=== PATIENT | female | born 1995 | race Caucasian/White ===

== ENCOUNTER 2017-05-20 19:27 | Inpatient (IN) | payer OTHER ==
[~2017-05-20] VITALS: Ht 165.1 cm; Wt 86.3 kg
[2017-05-20 19:25] VITALS: BP 124/81; PULSE 97; RESP 18; TEMP 97.3; O2SAT 99
[2017-05-20] MEDS ORDERED: diphenhydrAMINE HCL 50 MG/ML VIAL - HS PRN IM (20:30)
[2017-05-20] MEDS ORDERED: ACETAMINOPHEN 325 MG TAB PO PRN (20:30)
[2017-05-20] MEDS ORDERED: hydrOXYzine HCL 50 MG TAB PO PRN (20:30)
[2017-05-20] MEDS ORDERED: ALUMINUM/MAGNESIUM/SIMETH 30 ML CUP PO PRN (20:30)
[2017-05-20] MEDS ORDERED: MAGNESIUM HYDROXIDE SUSP 30 ML CUP PO PRN (20:30)
[2017-05-20] MEDS: REMOVE OLD NICOTINE PATCH T-DERMAL SCH (21:00)
[2017-05-21 06:25] VITALS: BP 106/60; PULSE 90; RESP 18; TEMP 98; O2SAT 98
[2017-05-21 08:33] LABS: HDL CHOLESTEROL 57.6 MG/DL (40.0-60.0); LDL CHOLESTEROL 112 MG/DL (0-99)
[2017-05-21 08:47] LABS: ANION GAP 11 MEQ/L (5-15); BICARBONATE 22.3 MEQ/L (21.0-32.0); BLOOD UREA NITROGEN 11 MG/DL (7-18); CHLORIDE 106 MEQ/L (98-107); GLOMERULAR FILTRATION RATE 92 ML/MIN (>89); SODIUM (NA) 139 MEQ/L (136-145)
[2017-05-21] MEDS: NICOTINE 21 MG/24 HR PATCH T-DERMAL SCH (09:00)
[2017-05-21] MEDS: LURASIDONE 40 MG TAB PO SCH (17:04)
[2017-05-21 17:14] LABS: HEMOGLOBIN A1a 1.1 %; HEMOGLOBIN A1b 0.8 %; HEMOGLOBIN Ao 85.3 %; HEMOGLOBIN F 1.2 %; HEMOGLOBIN LA1C 1.8 %; HEMOGLOBIN P3 3.5 %
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
[2017-05-21] MEDS: REMOVE OLD NICOTINE PATCH T-DERMAL SCH (20:24)
[2017-05-21 21:33] VITALS: BP 127/70; PULSE 72; RESP 18; TEMP 97.9; O2SAT 97
[2017-05-21] MEDS: diphenhydrAMINE HCL 50 MG CAP - HS PRN PO (22:01)
[2017-05-22 05:25] VITALS: BP 119/72; PULSE 74; RESP 18; TEMP 98.5; O2SAT 98
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
[2017-05-22] MEDS: NICOTINE 21 MG/24 HR PATCH T-DERMAL SCH (08:53)
[2017-05-22 09:32] LABS: AUTOMATED NEUTROPHIL # 4.6 TH/MM3 (1.8-7.7); BASOPHIL % 0.5 % (0.0-2.0); EOSINOPHIL # 0.2 TH/MM3 (0-0.4); EOSINOPHIL % 2.5 % (0.0-4.0); HEMATOCRIT 35.8 % (35.0-46.0); HEMO FLAGS DIFF FINAL; LYMPH % 24.8 % (9.0-44.0); LYMPHOCYTE # 1.8 TH/MM3 (1.0-4.8); MEAN CELL VOLUME 83.4 FL (80.0-100.0); MEAN CORPUSCULAR HEMOGLOBIN 28.2 PG (27.0-34.0); MEAN CORPUSCULAR HGB CONC 33.9 % (32.0-36.0); MONO % 7.2 % (0.0-8.0); PLATELET COUNT 293 TH/MM3 (150-450); RED BLOOD COUNT 4.29 MIL/MM3 (4.00-5.30); RED CELL DISTRIBUTION WIDTH 13.1 % (11.6-17.2); WHITE BLOOD COUNT 7.1 TH/MM3 (4.0-11.0)
[2017-05-22 10:14] LABS: INDIRECT BILIRUBIN 0.2 MG/DL (0.0-0.8); TOTAL BILIRUBIN ADULT 0.3 MG/DL (0.2-1.0)
--- NOTE | 2017-05-22 12:24 | EKG ---
Date Performed: 05/21/2017 Time Performed: 14:07:39 PTAGE: 22 years EKG: Sinus rhythm NORMAL ECG NO PREVIOUS TRACING DOCTOR: Bladimir Flores Interpretating Date/Time 05/22/2017 12:23:50
[2017-05-22 15:22] VITALS: BP 117/74; PULSE 82; RESP 18; TEMP 98.2; O2SAT 98
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
[2017-05-22] MEDS: LURASIDONE 40 MG TAB PO SCH (17:16)
[2017-05-22] MEDS: diphenhydrAMINE HCL 50 MG CAP - HS PRN PO (20:59)
[2017-05-22] MEDS: REMOVE OLD NICOTINE PATCH T-DERMAL SCH (21:00)
[2017-05-23 05:27] VITALS: BP 125/74; PULSE 83; RESP 17; TEMP 98.1; O2SAT 99
[2017-05-23] MEDS: NICOTINE 21 MG/24 HR PATCH T-DERMAL SCH (08:44)
[2017-05-23] MEDS: LURASIDONE 40 MG TAB PO SCH (17:14)
[2017-05-23 17:56] VITALS: BP 136/78; PULSE 89; RESP 19; TEMP 98.2; O2SAT 98
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
[2017-05-23] MEDS: REMOVE OLD NICOTINE PATCH T-DERMAL SCH (20:44)
[2017-05-24 04:55] VITALS: BP 113/64; PULSE 70; RESP 16; TEMP 97.9; O2SAT 98
[2017-05-24] MEDS: NICOTINE 21 MG/24 HR PATCH T-DERMAL SCH (08:23)
[2017-05-24] MEDS ORDERED: LURA40 PO (13:34)
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
== END 2017-05-24 14:34 | disposition home or self-care (01) | DRG 885 ==
LOC: H270 19:28 → H260 05-21 13:45
PROVIDERS: ADMIT Student in an Organized Health Care Education/Training Program; ATTEND Student in an Organized Health Care Education/Training Program
DX: F32.2 Major depressive disorder, single episode, severe without psychotic features (principal); R45.851 Suicidal ideations; F41.9 Anxiety disorder, unspecified; F12.90 Cannabis use, unspecified, uncomplicated; Z72.0 Tobacco use; Z72.89 Other problems related to lifestyle
CPT/HCPCS: 80048; 80061; 80076; 83036; 84443; 85025; 93005; Q0163